=== PATIENT | male | born 1965 | race Caucasian/White ===

== ENCOUNTER 2017-05-24 05:51 | Emergency (ER) | payer MEDICAID, OTHER ==
[2017-05-24] MEDS: ONDANSETRON (ODT) 4 MG TAB ODT (06:33)
[2017-05-24] MEDS: ONDANSETRON 4 MG INJ IV (07:28)
[2017-05-24] MEDS: SOD CHLORIDE 0.9% 1,000 ML IV ×2 (07:29→07:30)
== END 2017-05-24 12:07 | disposition home or self-care (01) ==
LOC: E/R 05:51
DX: S09.90XA Unspecified injury of head, initial encounter (principal); F10.129 Alcohol abuse with intoxication, unspecified; F17.210 Nicotine dependence, cigarettes, uncomplicated; R11.0 Nausea; R51 Headache; W01.198A Fall on same level from slipping, tripping and stumbling with subsequent striking against other object, initial encounter; Y92.9 Unspecified place or not applicable
CPT/HCPCS: 70450; 72125; 96374; 99285-25

== ENCOUNTER 2017-08-22 00:12 | Emergency (ER) | payer MEDICAID ==
[2017-08-22] MEDS: SOD CHLORIDE 0.9% 1,000 ML IV (00:58)
[2017-08-22 01:01] LABS: ADD MAN DIFF? NO
[2017-08-22 01:04] LABS: WHITE BLOOD COUNT 13.1 10^3/ul (4.8-10.8)
[2017-08-22 01:04] LABS: BASOPHIL # 0.2 10^3/ul (0.0-0.1); BASOPHILS % 1.3 % (0.0-2.0); EOSINOPHILS # 0.3 10^3/ul (0.0-0.5); EOSINOPHILS % 2.2 % (0.0-7.0); HEMATOCRIT 42.6 % (42.0-52.0); HEMOGLOBIN 14.4 g/dl (14.0-18.0); LYMPHOCYTES # 4.1 10^3/ul (0.8-2.9); LYMPHOCYTES % 31.5 % (15.0-51.0); MEAN CORPUSCULAR HGB CONC 33.8 g/dl (32.0-37.0); MEAN CORPUSCULAR VOLUME 91.6 fl (82.0-101.0); MEAN PLATELET VOLUME 8.2 fl (7.4-10.4); MONOCYTE # 0.7 10^3/ul (0.3-0.9); NEUTROPHIL # 7.8 10^3/ul (1.6-7.5); NEUTROPHILS % 59.5 % (39.0-77.0); PLATELET COUNT 436 10^3/UL (140-415); RED BLOOD COUNT 4.65 10^6/ul (4.70-6.10); RED CELL DISTRIBUTION WIDTH 15.8 % (11.5-14.5)
[2017-08-22] MEDS: ONDANSETRON 4 MG INJ IV (01:36)
[2017-08-22] MEDS: HYDROmorphONE 1 MG/ML SYG IV (01:36)
[2017-08-22 01:37] LABS: ALANINE AMINOTRANSFERASE 32 IU/L (13-69); ALBUMIN 4.4 g/dl (3.3-4.9); ALBUMIN/GLOBULIN RATIO 1.51; ALKALINE PHOSPHATASE 82 IU/L (42-121); ANION GAP 19 (8-16); ASPARTATE AMINO TRANSFERASE 31 IU/L (15-46); BILIRUBIN,INDIRECT 0.2 mg/dl (0-1.1); BILIRUBIN,TOTAL 0.2 mg/dl (0.2-1.3); BLOOD UREA NITROGEN 15 mg/dl (7-20); CALCIUM 9.1 mg/dl (8.4-10.2); CARBON DIOXIDE 27 mmol/L (21-31); CHLORIDE 111 mmol/L (97-110); CREATININE 0.83 mg/dl (0.61-1.24); GLUCOSE 101 mg/dl (70-220); LIPASE 124 U/L (23-300); POTASSIUM 4.2 mmol/L (3.5-5.1); SODIUM 153 mmol/L (135-144); TOTAL PROTEIN 7.3 g/dl (6.1-8.1)
[2017-08-22 01:45] LABS: INR 0.86; PROTIME 11.8 Sec (11.9-14.9); PT RATIO 0.9
[2017-08-22 01:49] LABS: B-TYPE NATRIURETIC PEPTIDE 55 PG/ML (0-125)
[2017-08-22 01:51] LABS: TROPONIN-I < 0.012 ng/ml (0.000-0.120)
== END 2017-08-22 03:37 | disposition home or self-care (01) ==
LOC: E/R 00:12
DX: K29.20 Alcoholic gastritis without bleeding (principal); F17.210 Nicotine dependence, cigarettes, uncomplicated; R40.2142 Coma scale, eyes open, spontaneous, at arrival to emergency department; R40.2242 Coma scale, best verbal response, confused conversation, at arrival to emergency department; R40.2362 Coma scale, best motor response, obeys commands, at arrival to emergency department
CPT/HCPCS: 36415; 71045; 80053; 83690; 83880; 84484; 85025; 85610; 85730; 96374; 96375; 99285-25

== ENCOUNTER 2017-09-07 06:50 | Emergency (ER) | payer MEDICAID ==
[2017-09-07 07:24] LABS: ADD MAN DIFF? NO
[2017-09-07] MEDS: FAMOTIDINE 20 MG INJ IV (07:26)
[2017-09-07 07:54] LABS: ALANINE AMINOTRANSFERASE 315 IU/L (13-69); ALBUMIN 4.3 g/dl (3.3-4.9); ALBUMIN/GLOBULIN RATIO 1.38; ALKALINE PHOSPHATASE 117 IU/L (42-121); ANION GAP 16 (8-16); ASPARTATE AMINO TRANSFERASE 548 IU/L (15-46); BILIRUBIN,INDIRECT 0.3 mg/dl (0-1.1); BILIRUBIN,TOTAL 0.3 mg/dl (0.2-1.3); BLOOD UREA NITROGEN 11 mg/dl (7-20); CALCIUM 8.4 mg/dl (8.4-10.2); CARBON DIOXIDE 28 mmol/L (21-31); CHLORIDE 103 mmol/L (97-110); CREATININE 0.74 mg/dl (0.61-1.24); GLUCOSE 219 mg/dl (70-220); LIPASE 563 U/L (23-300); POTASSIUM 3.9 mmol/L (3.5-5.1); SODIUM 143 mmol/L (135-144); TOTAL PROTEIN 7.4 g/dl (6.1-8.1)
[2017-09-07 07:57] LABS: INR 0.83; PROTIME 11.5 Sec (11.9-14.9); PT RATIO 0.9
[2017-09-07 07:58] LABS: PARTIAL THROMBOPLASTIN TIME 25.6 Sec (25.0-35.0)
[2017-09-07 08:06] LABS: TROPONIN-I < 0.012 ng/ml (0.000-0.120)
[2017-09-07 08:21] LABS: ABNORMAL IP MESSAGE 1; BASOPHILS % 0.5 % (0.0-2.0); EOSINOPHILS # 0.1 10^3/ul (0.0-0.5); EOSINOPHILS % 0.9 % (0.0-7.0); HEMATOCRIT 35.7 % (42.0-52.0); HEMOGLOBIN 12.5 g/dl (14.0-18.0); LYMPHOCYTES # 1.3 10^3/ul (0.8-2.9); MEAN CORPUSCULAR HEMOGLOBIN 31.3 pg (29.0-33.0); MEAN CORPUSCULAR VOLUME 89.5 fl (82.0-101.0); MONOCYTE # 0.5 10^3/ul (0.3-0.9); MONOCYTES % 8.1 % (0.0-11.0); NEUTROPHIL # 3.7 10^3/ul (1.6-7.5); NEUTROPHILS % 66.8 % (39.0-77.0); POSITIVE DIFF @See below; RED BLOOD COUNT 3.99 10^6/ul (4.70-6.10); RED CELL DISTRIBUTION WIDTH 17.7 % (11.5-14.5)
[2017-09-07 08:21] LABS: WHITE BLOOD COUNT 5.6 10^3/ul (4.8-10.8)
[2017-09-07 08:55] LABS: PLATELET COUNT 60 10^3/UL (140-415)
[2017-09-07 11:04] LABS: TROPONIN-I < 0.012 ng/ml (0.000-0.120)
[2017-09-07] MEDS: ONDANSETRON 4 MG INJ IV (11:50)
[2017-09-07] MEDS: DIPHENHYDRAMINE 50 MG INJ IV (12:26)
[2017-09-07] MEDS: METOCLOPRAMIDE 10 MG INJ IV (12:26)
== END 2017-09-07 14:03 | disposition home or self-care (01) ==
LOC: E/R 06:50
DX: R07.89 Other chest pain (principal); K29.20 Alcoholic gastritis without bleeding; F10.10 Alcohol abuse, uncomplicated; F17.210 Nicotine dependence, cigarettes, uncomplicated
CPT/HCPCS: 36415; 71045; 80053; 80307; 83690; 84484; 85025; 85610; 85730; 93005; 96374; 96375; 99285-25

== ENCOUNTER 2017-10-28 22:02 | Emergency (ER) | payer OTHER, MEDICAID ==
[~2017-10-28 22:02] MED LIST: AMIODARONE 150 MG INJ; CA CHLORIDE 10% 10 ML SYRINGE; EPINEPHrine 0.1 MG/ML SYG; NA BICARBONATE 8.4% 50 ML SYG
== END 2017-10-29 01:20 | disposition expired ==
LOC: E/R 22:02
DX: I46.9 Cardiac arrest, cause unspecified (principal); Z87.891 Personal history of nicotine dependence
CPT/HCPCS: 31500; 92950; 99285